=== PATIENT | male | born 1965 | race Caucasian/White ===

== ENCOUNTER → 2018-01-23 13:25 | Outpatient (CLI) | payer BC, SELFPAY ==
--- NOTE | 2018-01-23 13:28 | MR_ITS ---
MR lumbar spine wo con, MR 3-d myelogram/MRCP HISTORY: PT states low back pain X 6-8 Months. RT leg pain, numbness, and tingling. No prior surgery. ITS.REASON: ACUTE RIGHT-SIDED LOW BACK PAIN W/ RIGHT SIDE SCIATICA ORDERING PHYSICIAN: Pino Mcdonnell MD PATIENT AGE: 52 years Comparison: MRI 06/07/14 TECHNIQUE: Standard multiplanar multiecho sequences are performed without contrast. 3-D MIP and myelographic images are also rendered and reviewed FINDINGS: There is normal alignment. The spinal cord ends at the L2 level. L1-L2, L2-L3, L3-L4 have an unremarkable appearance. L4-5: There is mild facet hypertrophic change with mild left-sided foraminal narrowing. L5-S1: There is moderate facet hypertrophic change bilaterally greater on the right with moderate to severe right-sided foraminal narrowing with impingement upon the exiting L5 nerve root. There is [id number] left-sided foraminal narrowing. No disc herniation or canal stenosis. IMPRESSION: 1. Facet arthritic changes with moderate to severe right foraminal narrowing at L5-S1 with impingement upon the exiting L5 nerve root. There is also moderate foraminal narrowing of the left L5-S1 foramen and mild left-sided foraminal narrowing at L4-L5. The facet arthritic changes may be slightly worse than when compared to the previous exam. 2. No disc herniation or canal stenosis
== END ==
PROVIDERS: PCP Internal Medicine Adolescent Medicine; Visit Provider Internal Medicine Adolescent Medicine
DX: M54.41 Lumbago with sciatica, right side (principal)
CPT/HCPCS: 72148; 76376

== ENCOUNTER → 2018-04-08 11:35 | Outpatient (POV) | payer BC, SELFPAY ==
[2018-04-08 12:08] VITALS: BP 165/76; PULSE 64; RESP 18; O2SAT 99
--- NOTE | 2018-04-08 12:49 | HMH.PMCON ---
Assessment and Plan (1) Piriformis syndrome of right side Current visit: Yes Status: Chronic Category: Medical Code(s): G57.01 - Lesion of sciatic nerve, right lower limb (2) Sacroiliitis Current visit: Yes Status: Chronic Category: Medical Code(s): M46.1 - Sacroiliitis, not elsewhere classified - Assessment and plan all Dx Assessment and Plan for all problems:: We will schedule right SI joint injection and right piriformis injection. I believe that this might be diagnostically helpful in determining what is causing his pain. May also benefit him with increased functionality. This note was dictated using voice recognition software and may contain errors or omissions HPI - Data of Consult Consult date: 04/08/18 Requesting Physician: Trang Vega APRN Primary Care Provider: Pino Mcdonnell MD - Consult Narrative Reason for consult: Hip pain History of present illness: Mr. Felton is a 53 year old male resents today for consultation in regards to his right hip and leg pain. Patient states that standing for long periods of time increases his pain while resting decreases his pain. He has numbness and tingling in feet at times. He had a steroid injection intramuscularly which did help for some time. Patient is completed physical therapy with minimal relief along with occupational therapy. He is also been to chiropractic therapy. He rates his pain a 3 out of 10 and states that it is annoying. Patient has a fairly benign MRI does show some foraminal narrowing over along with some facet arthritis. Patient states most of his pain is in his hip area and underneath his buttock. CC: Trang Vega APRN [facility] History I have reviewed the patient's past medical history: Yes Medical History: Reports:: Hyperlipidemia, Hypertension - *Social History Alcohol Intake: never Occupational Status: other Housing: house - Psychiatric History Expresses thoughts of harming self/others: None Suicide Plan Description: No Plan *Family Hx:: Unable to obtain Review of Systems - Review of Systems ROS General: no recent weight change, no fever, no sleep disturbances Respiratory: no cough, no shortness of air, no recurring pulmonary infections Cardiovascular/Peripheral Vascular: No chest pain, No palpitations, no edema, no shortness of breath. Gastrointestinal: no incontinence, normal bowel movements reported Genitourinary: no incontinence Musculoskeletal: Right hip pain Psychiatric: normal mood/ affect Neurological: [denies weakness in extremities], [denies balance issues] Meds Allergies Allergy/AdvReac Type Severity Reaction Status Date / Time diclofenac [DICLOFENAC] Allergy Intermediate Unverified 04/16/17 15:15 azithromycin Allergy Unknown Unverified 04/16/17 15:15 Objective Vital signs: Pulse Resp BP Pulse Ox 64 18 165/76 H 99 04/08/18 12:08 04/08/18 12:08 04/08/18 12:08 04/08/18 12:08 Narrative: Physical Exam General: Alert and oriented x3, no acute distress, pleasant and cooperative, [on room air] Lungs: Resps E/U, Symmetrical chest expansion, Eyes: PERRL Musculoskeletal: Flexion and extension of lumbar spine somewhat guarded secondary to pain, deep tendon reflexes normal, strength in upper and lower extremities [5/5], slightly antalgic gait noted, positive Espinoza's test on the right side, extreme point tenderness over right piriformis muscle Neurological: speech clear, 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
--- NOTE | 2018-04-08 12:52 | P.CONS_ITS ---
Assessment and Plan (1) Piriformis syndrome of right side Current visit: Yes Status: Chronic Category: Medical Code(s): G57.01 - Lesion of sciatic nerve, right lower limb (2) Sacroiliitis Current visit: Yes Status: Chronic Category: Medical Code(s): M46.1 - Sacroiliitis, not elsewhere classified - Assessment and plan all Dx Assessment and Plan for all problems:: We will schedule right SI joint injection and right piriformis injection. I believe that this might be diagnostically helpful in determining what is causing his pain. May also benefit him with increased functionality. This note was dictated using voice recognition software and may contain errors or omissions HPI - Data of Consult Consult date: 04/08/18 Requesting Physician: Trang Vega APRN Primary Care Provider: Pino Mcdonnell MD - Consult Narrative Reason for consult: Hip pain History of present illness: Mr. Felton is a 53 year old male resents today for consultation in regards to his right hip and leg pain. Patient states that standing for long periods of time increases his pain while resting decreases his pain. He has numbness and tingling in feet at times. He had a steroid injection intramuscularly which did help for some time. Patient is completed physical therapy with minimal relief along with occupational therapy. He is also been to chiropractic therapy. He rates his pain a 3 out of 10 and states that it is annoying. Patient has a fairly benign MRI does show some foraminal narrowing over along with some facet arthritis. Patient states most of his pain is in his hip area and underneath his buttock. CC: Trang Vega APRN [facility] History I have reviewed the patient's past medical history: Yes Medical History: Reports:: Hyperlipidemia, Hypertension - *Social History Alcohol Intake: never Occupational Status: other Housing: house - Psychiatric History Expresses thoughts of harming self/others: None Suicide Plan Description: No Plan *Family Hx:: Unable to obtain Review of Systems - Review of Systems ROS General: no recent weight change, no fever, no sleep disturbances Respiratory: no cough, no shortness of air, no recurring pulmonary infections Cardiovascular/Peripheral Vascular: No chest pain, No palpitations, no edema, no shortness of breath. Gastrointestinal: no incontinence, normal bowel movements reported Genitourinary: no incontinence Musculoskeletal: Right hip pain Psychiatric: normal mood/ affect Neurological: [denies weakness in extremities], [denies balance issues] Meds Allergies Allergy/AdvReac Type Severity Reaction Status Date / Time diclofenac [DICLOFENAC] Allergy Intermediate Unverified 04/16/17 15:15 azithromycin Allergy Unknown Unverified 04/16/17 15:15 Objective Vital signs: Pulse Resp BP Pulse Ox 64 18 165/76 H 99 04/08/18 12:08 04/08/18 12:08 04/08/18 12:08 04/08/18 12:08 Narrative: Physical Exam General: Alert and oriented x3, no acute distress, pleasant and cooperative, [on room air] Lungs: Resps E/U, Symmetrical chest expansion, Eyes: PERRL Musculoskeletal: Flexion and extension of lumbar spine somewhat guarded secondary to pain, deep tendon reflexes normal, strength in upper and lower extremities [5/5], slightly antalgic gait noted, positive Espinoza's
== END ==
PROVIDERS: PCP Internal Medicine Adolescent Medicine; Visit Provider Clinical Nurse Specialist Family Health
DX: G57.01 Lesion of sciatic nerve, right lower limb (principal); M46.1 Sacroiliitis, not elsewhere classified
CPT/HCPCS: 99202

== ENCOUNTER → 2018-05-12 13:43 | Outpatient (POV) | payer BC, SELFPAY ==
[2018-05-12 13:54] VITALS: BP 146/84; PULSE 67; RESP 18; O2SAT 98; BMI 35.7
--- NOTE | 2018-05-12 14:11 | P.CONS_ITS ---
[facility] Pain Management SOAP Note Subjective:: Is a pleasant 53-year-old white male who presents today for follow-up after right SI joint injection right piriformis injection. Patient is doing much better. He states that he had no pain for 5 days and as it slowly began to come back his did some deep tissue massage which was very beneficial. Patient would like to explore this option for pain control. He rates his pain a 3 out of 10 today. ROS General: no recent weight change, no fever, no sleep disturbances Respiratory: no cough, no shortness of air, no recurring pulmonary infections Cardiovascular/Peripheral Vascular: No chest pain, No palpitations, no edema, no shortness of breath. Gastrointestinal: no incontinence, normal bowel movements reported Genitourinary: no incontinence Musculoskeletal: Right SI joint pain, right piriformis pain Psychiatric: normal mood/ affect Neurological: [denies weakness in extremities], [denies balance issues] Objective:: Physical Exam General: Alert and oriented x3, no acute distress, pleasant and cooperative, [on room air] Lungs: Resps E/U, Symmetrical chest expansion, Eyes: PERRL Musculoskeletal: Flexion and extension of lumbar spine somewhat guarded secondary to pain, deep tendon reflexes normal, strength in upper and lower extremities [5/5], slightly antalgic gait noted Neurological: speech clear, 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 Patient is going to look into massage therapy. Patient's been instructed to call the office if he has any issues prior to his next appointment. This note was dictated using voice recognition software and may contain errors or omissions
== END ==
PROVIDERS: PCP Internal Medicine Adolescent Medicine; Visit Provider Clinical Nurse Specialist Family Health
DX: M79.18 Myalgia, other site (principal); G57.01 Lesion of sciatic nerve, right lower limb; M46.1 Sacroiliitis, not elsewhere classified
CPT/HCPCS: 99213

== ENCOUNTER → 2018-08-04 13:20 | Outpatient (CLI) | payer BC, SELFPAY ==
--- NOTE | 2018-08-04 13:29 | XR_ITS ---
XR sacroiliac joint BI min 3V CLINICAL INDICATION: ITS.REASON: LOW BACK PAIN WITH RT HIP PAIN ORDERING PHYSICIAN: Pino Mcdonnell MD PATIENT AGE: 53 years Comparison: None FINDINGS: The SI joints have an unremarkable appearance. No evidence of effusion or erosive change. Small sclerotic focus is noted superior to the right acetabulum and may be due to bone island at 6 mm. Additional sclerotic focus involves the junction of the left inferior pubic ramus with the ischium. IMPRESSION: Unremarkable SI joints. Possible bone islands
--- NOTE | 2018-08-04 13:29 | XR_ITS ---
XR hip RT 2-3V w/pelvis HISTORY: ITS.REASON: LOW BACK PAIN WITH RT HIP PAIN ORDERING PHYSICIAN: Pino Mcdonnell MD PATIENT AGE: 53 years COMPARISON: None FINDINGS: Mild osteoarthritic changes are present involving the right hip. Trace lucency is present along the acetabular roof laterally at 1 cm and may represent a subchondral cyst. No fracture or dislocation. IMPRESSION: Mild osteoarthritis of the right hip with lucency of the acetabular roof which may be due to a subchondral cyst/geode
--- NOTE | 2018-08-04 13:29 | XR_ITS ---
XR hip LT 2-3V w/pelvis HISTORY: ITS.REASON: LOW BACK PAIN WITH HIP PAIN ORDERING PHYSICIAN: Pino Mcdonnell MD PATIENT AGE: 53 years COMPARISON: None FINDINGS: No fracture or dislocation is evident. There are minimal osteoarthritic changes with minimal osteophyte formation along the inferior aspect of the acetabulum. A sclerotic focus is present involving the junction of the inferior pubic ramus with the ischium and may be due to a bone island. IMPRESSION: Minimal osteoarthritic changes of the left hip
== END ==
PROVIDERS: PCP Internal Medicine Adolescent Medicine; Visit Provider Internal Medicine Adolescent Medicine
DX: M54.5 Low back pain (principal); M25.552 Pain in left hip; M25.551 Pain in right hip
CPT/HCPCS: 72202; 73502

== ENCOUNTER → 2020-05-26 07:17 | Outpatient (CLI) | payer BC, OTHER, SELFPAY ==
--- NOTE | 2020-05-26 | CA_ITS ---
APPROVED REPORT Exam: Exercise Treadmill Technologist: Grace Yancey, Ht: 5 ft 8 in Wt: 239 lbs BSA: 2.20 m2 Medical History Medications: Levothyroxine,,,,, Celecoxib,,,,, Trazodone,,,,, BisOPROLOL-HCTZ,,,,, Testosterone Cypionate,,,,, Stress Test Details Test: Godfrey HR Resting HR: 66 bpm Max Heart Rate (APMHR): 163 bpm Max HR Achieved: 131 bpm Target HR (85% APMHR): 138 bpm % of APMHR: 80 Recovery HR: 78 bpm BP Resting BP: 134/76 mmHg Max BP: 174/80 mmHg Recovery BP: 145.0/85.0 mmHg ECG Resting ECG: Sinus gildardo, Left posterior fasicular block, ST-T abns inferiorly Clinical Exercise duration: 06:31 min Highest Stage Achieved: Exercise capacity: 7.0 METs Stress ECG Conclusion Exercised 6:31 on Godfrey Protocol Max HR: 131 %of PM: 80% Max BP: 174/80 METs: 7.0 Test stopped due to : SOA, leg fatique Symptoms: Mild chest tightness Arrhythmias/Ectopy: Rare PVC ST-T Changes: No significant changes compared to baseline EKG. Conclusion: Non-diagnostic GXT due to baseline EKG abns. Blunted HR response on Bisoprolol<80% of PM achieved. Myoview images reported separtely. Test Summary REST . . . . . . . Standing REST . . . . . . . Sitting REST . . . . . . . Standing REST . . . . . . . Sitting REST 17:51 0.0 0.0 66 . 134/ 76 . . Stage 1 01:00 10.0 1.7 91 . . . . Stage 1 02:00 10.0 1.7 100 . . . . Stage 1 03:00 10.0 1.7 102 . 155/ 85 . . Stage 2 01:00 12.0 2.5 108 . . . . Stage 2 02:00 12.0 2.5 114 . . . . Stage 2 . . . . . . . Cardiolite injected Stage 2 03:00 12.0 2.5 119 . 164/ 80 . . Stage 3 00:31 14.0 3.4 130 . . . Stop exercise at 06:31 RECOVERY 01:00 0.0 0.0 96 . . . . RECOVERY 02:00 0.0 0.0 81 . 174/ 80 . . RECOVERY 03:00 0.0 0.0 79 . 174/ 80 . . RECOVERY 04:00 0.0 0.0 81 . 135/ 84 . . RECOVERY 05:00 0.0 0.0 74 . 156/ 84 . . RECOVERY 06:00 0.0 0.0 74 . 156/ 84 . . RECOVERY 06:56 0.0 0.0 76 . 145/ 85 . . Electronically signed by : Ari Metcalf, 05/26/2020 18:21:55
--- NOTE | 2020-05-26 07:29 | NM_ITS ---
APPROVED REPORT Exam: Nuclear Stress Test Indication: chest pain..short of breath..fatigue Patient Location: Outpatient Stress Tech: Idania Fernandez [place] Tech:NEW Rob RT(R)(N) Ht: 5 ft 8 in Wt: 240 lbs HR: 60 bpm BP: 134/76 mmHg BSA: 2.21 m2 BMI: 36.4 History: chest pain..short of breath..fatigue Procedure: Patient exercised on Godfrey protocol 6.31 minutes and sec, resting heart rate 60 bpm, resting blood pressure 134/76 mmHg, with exercise maximum heart rate achived was 131 bpm which is 80 % of the maximum predicted heart rate and blood pressure was 174/80 mmHg. Patient has adequate exercise capacity, achieved 7.0 METs of workload on treadmill, the blood pressure response to exercise was adequate. Electrocardiogram Resting electrocardiogram shows sinus rhythm nonspecific ST-T changes, with exercise there is less than 1.[address] segment depression noted from the baseline EKG. The EKG portion of the exercise Myoview is nondiagnostic. Cardiac Stress and Resting SPECT Images: Cardiac Stress and Resting SPECT images were obtained using technetium 99m Myoview 32.8 mCi stress and 10.25 mCi at rest. Gated SPECT for analysis of segmental wall motion and calculation of the ejection fraction also done. Prone images were also obtained. Cardiac stress and resting SPECT images show uniform myocardial activity without segmental perfusion abnormality, computer derived ejection fraction is 58% with no regional wall motion abnormality, right ventricle is mildly enlarged with normal contractility. Conclusion: 1. The EKG portion of the exercise Myoview is nondiagnostic as patient did not achieve the target heart rate, patient has adequate exercise capacity achieved 7 mets of workload on treadmill, the blood pressure response to exercise was adequate. There was no exercise-induced chest discomfort. 2. No scintigraphic evidence of reversible ischemia seen at this level of exercise, computer derived ejection fraction is 58% with no regional wall motion abnormality, right ventricle is mildly enlarged with normal contractility. Electronically signed by : Ari Metcalf, 05/26/2020 18:58:34
== END ==
PROVIDERS: PCP Internal Medicine Adolescent Medicine; Visit Provider Internal Medicine Adolescent Medicine
DX: R07.9 Chest pain, unspecified (principal); I10 Essential (primary) hypertension
CPT/HCPCS: 78452; 93017; A9502

== ENCOUNTER → 2020-07-21 15:01 | Outpatient (CLI) | payer BC, OTHER, SELFPAY ==
[2020-07-21 15:24] LABS: Basophils # 0.1 K/mm3 (0-0.2); Basophils % 0.8 % (0.1-2.0); Eosinophils # 0.3 K/mm3 (0.0-0.4); Eosinophils % 2.9 % (0.1-12.0); Hematocrit 47.9 % (42.0-52.0); Hemoglobin 15.2 g/dL (14.1-18.0); Lymphocytes # 2.3 K/mm3 (0.7-4.5); Mean Corpuscular HGB Conc 31.8 g/dL (31.8-35.4); Mean Corpuscular Volume 84.8 fl (80-94); Mean Platelet Volume 8.4 fl (7.4-10.4); Monocytes # 0.7 K/mm3 (0.1-1.0); Monocytes % 7.6 % (1.7-9.3); Neutrophils # 5.6 K/mm3 (1.8-7.8); Neutrophils % 62.8 % (37.0-80.0); Platelet Count 211 K/mm3 (142-424); Red Blood Count 5.65 M/mm3 (4.60-6.20); Red Cell Distribution Width 14.1 % (11.5-17.5); White Blood Count 8.9 K/mm3 (4.8-10.8)
[2020-07-21 15:58] LABS: Chloride 102 mmol/L (98-107); Potassium 4.3 mmoL/L (3.5-5.1); Sodium 140 mmol/L (136-145)
[2020-07-21 16:00] LABS: Blood Urea Nitrogen 26 mg/dl (9-20); Estimated Glomerular Filt Rate 57 ml/min (>60); GFR (African American) 69 ML/MIN (>60)
[2020-07-21 16:01] LABS: Alanine Aminotransferase 37 U/L (12-78); Albumin Level 4.3 g/dl (3.5-5.0); Albumin/Globulin Ratio 1.5 (1.1-1.8); Alkaline Phosphatase 73 U/L (38-126); Anion Gap 11.3 mEq/L (5-15); Aspartate Amino Transferase 36 U/L (17-59); Bilirubin,Total 0.5 mg/dl (0.2-1.3); Calcium 9.7 mg/dl (8.4-10.2); Carbon Dioxide 31 mmol/L (22.0-30.0); Globulin 2.8 g/dL (1.3-3.2); Glucose 99 mg/dl (74-100); Total Protein,Serum 7.1 g/dl (6.3-8.2)
== END ==
PROVIDERS: Visit Provider Internal Medicine Adolescent Medicine
DX: E29.1 Testicular hypofunction (principal)
CPT/HCPCS: 36415; 80053; 84402; 84403; 85025

== ENCOUNTER → 2020-09-12 16:49 | Outpatient (CLI) | payer BC, OTHER, SELFPAY ==
--- NOTE | 2020-09-12 | XR_ITS ---
PROCEDURE: XR SHOULDER LT MIN 2V CLINICAL INDICATION: Pain COMPARISON: No exams were available for comparison FINDINGS: No fracture or dislocation. No lytic or blastic change. There is normal mineralization. Hypertrophic changes are present along the undersurface of the acromion with resultant subacromial stenosis. Mild osteoarthritic changes are present at the acromioclavicular joint. Glenohumeral joint has an unremarkable appearance. Other findings:None. IMPRESSION: Subacromial stenosis with hypertrophy along the undersurface of the acromion with mild osteoarthritic changes of the AC joint Dictated by: Fausto Tovar MD 09/12/2020 18:22 Fausto Tovar MD in [place] 09/12/2020 18:22
== END ==
PROVIDERS: PCP Internal Medicine Adolescent Medicine; Visit Provider Internal Medicine Adolescent Medicine
DX: M75.102 Unspecified rotator cuff tear or rupture of left shoulder, not specified as traumatic (principal)
CPT/HCPCS: 73030

== ENCOUNTER → 2021-02-25 11:16 | Outpatient (CLI) | payer BC, OTHER, SELFPAY ==
--- NOTE | 2021-02-25 11:21 | XR_ITS ---
PROCEDURE INFORMATION: Exam: XR Right Knee Exam date and time: 02/25/2021 11:21 AM Age: 55 years old Clinical indication: Pain; Knee; Right TECHNIQUE: Imaging protocol: XR Right knee. Views: 3 views. COMPARISON: No relevant prior studies available. FINDINGS: Bones/joints: No acute fracture or dislocation. Enthesophyte superior patella. Soft tissues: Normal. IMPRESSION: No acute findings.
== END ==
PROVIDERS: PCP Internal Medicine Adolescent Medicine; Visit Provider Internal Medicine Adolescent Medicine
DX: M25.561 Pain in right knee (principal)
CPT/HCPCS: 73562

== ENCOUNTER → 2021-04-20 16:00 | Outpatient (CLI) | payer BC, SELFPAY ==
[2021-04-20 16:48] LABS: Basophils # 0.1 K/mm3 (0-0.2); Basophils % 1.1 % (0.1-2.0); Eosinophils # 0.2 K/mm3 (0.0-0.4); Eosinophils % 1.9 % (0.1-12.0); Hematocrit 49.6 % (42.0-52.0); Hemoglobin 15.9 g/dL (14.1-18.0); Lymphocytes % 21.4 % (10-50); Mean Corpuscular Volume 84.5 fl (80-94); Mean Platelet Volume 9.9 fl (7.4-10.4); Monocytes # 0.9 K/mm3 (0.1-1.0); Monocytes % 9.2 % (1.7-9.3); Neutrophils # 6.2 K/mm3 (1.8-7.8); Neutrophils % 66.4 % (37.0-80.0); Platelet Count 220 K/mm3 (142-424); Red Blood Count 5.87 M/mm3 (4.60-6.20); Red Cell Distribution Width 15.4 % (11.5-17.5); White Blood Count 9.4 K/mm3 (4.8-10.8)
[2021-04-20 18:20] LABS: Alanine Aminotransferase 33 U/L (12-78); Albumin Level 4.3 g/dl (3.5-5.0); Albumin/Globulin Ratio 1.6 (1.1-1.8); Alkaline Phosphatase 56 U/L (38-126); Anion Gap 10.5 mEq/L (5-15); Aspartate Amino Transferase 36 U/L (17-59); Bilirubin,Total 0.6 mg/dl (0.2-1.3); Blood Urea Nitrogen 18 mg/dl (9-20); Calcium 9.6 mg/dl (8.4-10.2); Carbon Dioxide 33 mmol/L (22.0-30.0); Chloride 98 mmol/L (98-107); Estimated Glomerular Filt Rate 77 ml/min (>60); GFR (African American) 93 ML/MIN (>60); Globulin 2.7 g/dL (1.3-3.2); Glucose 86 mg/dl (74-100); Magnesium 1.8 mg/dl (1.6-2.3); Potassium 4.5 mmoL/L (3.5-5.1); Sodium 137 mmol/L (136-145)
[2021-04-20 18:50] LABS: Thyroid Stimulating Hormone 2.49 uIU/mL (0.465-4.68)
[2021-04-20 19:09] LABS: Vitamin B12 465 pg/mL (239-931)
[2021-04-22 05:07] LABS: Testosterone,Total 654 ng/dL (264-916)
== END ==
PROVIDERS: Visit Provider Nurse Practitioner Family
DX: I10 Essential (primary) hypertension (principal); E03.9 Hypothyroidism, unspecified; E29.1 Testicular hypofunction; R53.81 Other malaise
CPT/HCPCS: 36415; 80053; 82607; 83735; 84403; 84443; 85025

== ENCOUNTER → 2022-03-29 11:28 | Outpatient (CLI) | payer OTHER, SELFPAY ==
--- NOTE | 2022-03-29 11:35 | XR_ITS ---
FINAL REPORT CLINICAL HISTORY: NECK PAIN x 6 mos, no injury, no surgery FINDINGS: CERVICAL SPINE Five views were obtained. There is no acute fracture. There is no malalignment. There is loss of cervical lordosis. The disc spaces are maintained. There is moderate anterior osteophyte formation at C5-C6. The neural foramen are adequately patent. IMPRESSION: No acute process. Reviewed, Interpreted and Dictated by Shahid Mcnally MD Transcribed by Andrew Brandon Authenticated and [facility]
== END ==
PROVIDERS: PCP Nurse Practitioner Family; Visit Provider Nurse Practitioner Family
DX: M54.2 Cervicalgia (principal)
CPT/HCPCS: 72050

== ENCOUNTER 2022-04-11 08:43 | Outpatient (RCR) | payer BC, OTHER, SELFPAY ==
--- NOTE | 2022-04-11 09:56 | HMH.PTOPEV ---
PT Outpatient Evaluation Rehab PT Outpatient Evaluation Start: 04/11/22 09:23 Freq: Status: Active Protocol: Document 04/11/22 09:42 PATRIA (Rec: 04/11/22 09:54 PATRIA [id number]) E-signed By Arturo Roach, PT Outpatient Therapy Subjective History Subjective History Patient is a 57 year old male presenting to outpatient PT with reports of chronic cervical spine pain with associated cervicogenic headaches. Symptoms of insidious onset started approximately 10 years ago and have progressively gotten worse over the past 6 months. Most recent imaging indicate no acute process. Comorbidities include hx of LS fusion, HTN and colon resection. Chief Complaint Pain,Stiff Symptom Type Throb Symptoms Relieved By Rest/Positioning,Heat,OTC Meds Symptoms Aggravated By Physical Activity,Lifting Prior Functional Limitations Reaching,Lifting,Housework Current Functional Limitations Reaching,Lifting,Housework Symptom Description Intermittent Level of pain today (0-10) 5 Pain scale - at its best (0-10) 0 Pain scale - at its worst (0-10) 7 Cervical Eval Palpation Cervical Muscles R Cervical Paraspinal,L Cervical Paraspinal,R Suboccipital,L Suboccipital Posture Head/C-Spine Posture Sitting Position C-Spine Flattened Head/C-Spine Posture Standing Position C-Spine Flattened Flexibility Deficits Upper Trapezius Muscle Length (R) Moderate Tightness,(L) Moderate Tightness Pectoralis Minor Muscle Length (R) Moderate Tightness,(L) Moderate Tightness Passive Joint Mobility Cervical PIVM Dec: R C2/3 L C2/3 R C3/4 L C3/4 R C4/5 L C4/5 R C5/6 L C5/6 R C6/7 L C6/7 R C7/T1 L C7/T1 WNL: R OA L OA R AA L AA AROM Cervical Spine E
== END 2022-04-11 08:45 | disposition home or self-care (01) ==
LOC: PT 08:43
PROVIDERS: PCP Nurse Practitioner Family; Visit Provider Nurse Practitioner Family
DX: M54.2 Cervicalgia (principal)
CPT/HCPCS: 97163

== ENCOUNTER → 2022-06-06 09:33 | Outpatient (CLI) | payer OTHER, SELFPAY ==
--- NOTE | 2022-06-06 09:37 | CT_ITS ---
FINAL REPORT TECHNIQUE: Axial images through the abdomen and pelvis were performed without contrast. This study was performed with techniques to keep radiation doses as low as reasonably achievable, (ALARA). Individualized dose reduction techniques using automated exposure control or adjustment of mA and/or kV according to the patient's size were employed. CLINICAL HISTORY: REDUCIBLE BULGE OF ABD WALL, previous lower abd pain FINDINGS: ABDOMEN: There is extensive calcified subcarinal and hilar adenopathy. The heart size is normal. The liver parenchyma is homogeneous. There are gallstones in the gallbladder. There are calcified granulomas in the spleen. No adrenal mass is identified. The aorta is normal in caliber. There is no significant free fluid. A benign-appearing cyst is seen in the right kidney measuring 1.9 cm. There is no nephrolithiasis. No definite hernia is identified. There is no hydronephrosis. Streak artifact is seen from posterior fusion hardware bridging L5-S1. PELVIS: The appendix is not identified. The urinary bladder is unremarkable. There is no significant free fluid or adenopathy. IMPRESSION: No definite hernia identified. Cholelithiasis. Reviewed, Interpreted and Dictated by Shahid Mcnally MD Transcribed by Julieta Barrios Authenticated and [facility]
== END ==
PROVIDERS: PCP Nurse Practitioner Family; Visit Provider Nurse Practitioner Family
DX: R19.00 Intra-abdominal and pelvic swelling, mass and lump, unspecified site (principal)
CPT/HCPCS: 74176

== ENCOUNTER → 2022-09-19 09:30 | Outpatient (CLI) | payer OTHER, SELFPAY ==
--- NOTE | 2022-09-19 09:39 | CT_ITS ---
FINAL REPORT TECHNIQUE: Axial CT images of the abdomen and pelvis were obtained before and after the administration of IV contrast. Oral contrast was administered.This study was performed with techniques to keep radiation doses as low as reasonably achievable (ALARA). Individualized dose reduction techniques using automated exposure control or adjustment of mA and/or kV according to the patient''s size were employed. CLINICAL HISTORY: LLQ ABD PAIN X 1 MOS ORAL CONTRAST FINISHED AT 7:45 AM COMPARISON: 06/06/2022 FINDINGS: Abdomen: There is mild bibasilar atelectasis. The heart is normal in size. The liver is fatty infiltrated. Gallstones are present in the gallbladder. The spleen is unremarkable. No adrenal masses present. The pancreas has an unremarkable appearance. There is a cyst in the lower pole of the right kidney measuring 20 mm. The aorta is normal in caliber. There is no free fluid or adenopathy. No mass or abnormal fluid collection is seen. Precontrast images demonstrate no evidence of nephrolithiasis. Pelvis: The appendix is normal. There are scattered diverticula throughout the colon. There is mild wall thickening of the rectosigmoid colon. Mild colitis is not excluded. The urinary bladder is unremarkable. There is no evidence of mass or adenopathy. There are bilateral inguinal hernias containing fat. Postoperative changes are noted in the lumbar spine. IMPRESSION: Fatty liver. Scattered diverticula throughout the colon. Mild wall thickening rectosigmoid colon. 20 mm right renal cyst. Reviewed, Interpreted and Dictated by Alireza Rai III, MD Transcribed by Katie Mccracken Authenticated and . [facility]
[2022-09-19 10:01] LABS: Blood Urea Nitrogen 21 mg/dl (9-20); Estimated Glomerular Filt Rate 76 ml/min (>60); GFR (African American) 93 ML/MIN (>60)
== END ==
PROVIDERS: PCP Nurse Practitioner Family; Visit Provider Internal Medicine Adolescent Medicine
DX: R10.32 Left lower quadrant pain (principal)
CPT/HCPCS: 36415; 74178; 82565; 84520; Q9967

== ENCOUNTER → 2022-09-26 14:54 | Outpatient (CLI) | payer OTHER, SELFPAY ==
[2022-09-26 15:01] LABS: Microscopic, Urine URINE MICROSCOPIC (MICROSCOPIC)
[2022-09-26 15:32] LABS: Basophils # 0.1 K/mm3 (0-0.2); Basophils % 0.7 % (0.1-2.0); Eosinophils # 0.2 K/mm3 (0.0-0.4); Eosinophils % 2.9 % (0.1-12.0); Hematocrit 46.8 % (42.0-52.0); Hemoglobin 14.6 g/dL (14.1-18.0); Lymphocytes # 1.8 K/mm3 (0.7-4.5); Lymphocytes % 23.3 % (10-50); Mean Corpuscular HGB Conc 31.2 g/dL (31.8-35.4); Mean Corpuscular Hemoglobin 24.8 pg (27.0-31.2); Mean Corpuscular Volume 79.6 fl (80-94); Monocytes # 0.6 K/mm3 (0.1-1.0); Monocytes % 7.9 % (1.7-9.3); Neutrophils # 5.1 K/mm3 (1.8-7.8); Neutrophils % 65.1 % (37.0-80.0); Platelet Count 211 K/mm3 (142-424); Red Blood Count 5.88 M/mm3 (4.60-6.20); Red Cell Distribution Width 16.1 % (11.5-17.5); White Blood Count 7.9 K/mm3 (4.8-10.8)
[2022-09-26 15:52] LABS: Appearance,Urine CLEAR (Clear); Bilirubin,Urine Negative (Negative); Blood, Urine Negative (Negative); Color,Urine YELLOW (Yellow); Glucose,Urine (UA) Negative (Negative); Ketones,Urine Negative (Negative); Leukocyte Esterase,Urine Negative (Negative); Nitrate,Urine Negative (Negative); Protein,Urine TRACE (Negative); Urobilinogen,Urine 0.2 EU/dl (0.2)
[2022-09-26 16:17] LABS: Alanine Aminotransferase 43 U/L (12-78); Albumin Level 4.1 g/dl (3.5-5.0); Albumin/Globulin Ratio 1.6 (1.1-1.8); Alkaline Phosphatase 61 U/L (38-126); Anion Gap 13.1 mEq/L (5-15); Aspartate Amino Transferase 37 U/L (17-59); Bilirubin,Total 0.7 mg/dl (0.2-1.3); Blood Urea Nitrogen 18 mg/dl (9-20); Calcium 9.4 mg/dl (8.4-10.2); Carbon Dioxide 31 mmol/L (22.0-30.0); Chloride 99 mmol/L (98-107); Estimated Glomerular Filt Rate 76 ml/min (>60); GFR (African American) 93 ML/MIN (>60); Globulin 2.6 g/dL (1.3-3.2); Glucose 140 mg/dl (74-100); Potassium 4.1 mmoL/L (3.5-5.1); Sodium 139 mmol/L (136-145); Total Protein,Serum 6.7 g/dl (6.3-8.2)
[2022-09-26 16:25] LABS: Amorphous Sediment,Urine 1+ /lpf; Bacteria,Urine Trace /lpf; RBC,Urine Occasional #/hpf (0-3); Squamous Epithelial Cell,Urine Occasional #/hpf (0-5); WBC,Urine Occasional #/hpf (0-3)
== END ==
PROVIDERS: PCP Nurse Practitioner Family; Visit Provider Surgery
DX: R10.30 Lower abdominal pain, unspecified (principal)
CPT/HCPCS: 36415; 80053; 81001; 85025

== ENCOUNTER → 2022-10-16 12:03 | Outpatient (CLI) | payer OTHER, SELFPAY ==
[2022-10-16 12:25] LABS: Basophils % 0.5 % (0.1-2.0); Eosinophils # 0.2 K/mm3 (0.0-0.4); Eosinophils % 2.9 % (0.1-12.0); Hematocrit 47.1 % (42.0-52.0); Hemoglobin 14.9 g/dL (14.1-18.0); Lymphocytes # 1.8 K/mm3 (0.7-4.5); Lymphocytes % 22.7 % (10-50); Mean Corpuscular HGB Conc 31.6 g/dL (31.8-35.4); Mean Corpuscular Hemoglobin 24.8 pg (27.0-31.2); Mean Corpuscular Volume 78.5 fl (80-94); Mean Platelet Volume 9.5 fl (7.4-10.4); Monocytes # 0.6 K/mm3 (0.1-1.0); Monocytes % 7.3 % (1.7-9.3); Neutrophils # 5.2 K/mm3 (1.8-7.8); Neutrophils % 66.6 % (37.0-80.0); Platelet Count 172 K/mm3 (142-424); White Blood Count 7.9 K/mm3 (4.8-10.8)
== END ==
PROVIDERS: PCP Internal Medicine Adolescent Medicine; Visit Provider Surgery
DX: Z01.812 Encounter for preprocedural laboratory examination (principal); Z87.19 Personal history of other diseases of the digestive system
CPT/HCPCS: 36415; 85025

== ENCOUNTER 2022-12-26 11:00 | Outpatient (RCR) | payer OTHER, SELFPAY ==
--- NOTE | 2022-09-19 11:50 | HMH.OTOPEV ---
OT Inpatient Evaluation Rehab OT Outpatient Eval Start: 09/19/22 11:33 Freq: Status: Active Protocol: Document 09/19/22 11:34 REJI (Rec: 09/19/22 11:[address] [id number][facility] E-signed By Alfonso Crowley, OT Outpatient Therapy Subjective History Subjective History Pt is a 57 year old male who reports to therapy for initial evaluation to left shoulder. Pt's pain begain ~2-3 months ago and he does not recall a specific injury to begin his pain. 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 Pt does demonstrate with decreased AROM and a slight decline in strength. Pt will continue to be seen twice a week in order to address left shoulder deficits. Chief Complaint Pain,Weakness Symptom Type Ache,Throb,Sharp,Dull,Stabbing Symptoms Relieved By Rest/Positioning,Heat,OTC Meds Symptoms Aggravated By Physical Activity,Lifting Prior Functional Limitations None Current Functional Limitations Reaching,Lifting,Housework, Sleeping,Recreation Activity Symptom Description Intermittent,Activity Dependent Level of pain today (0-10) 0 Pain scale - at its best (0-10) 0 Pain scale - at its worst (0-10) 8 Shoulder/Elbow Eval Shoulder Objective Measurements Shoulder ROM Left Shoulder Abduction Active Range of 118 degrees Motion (degrees) Shoulder Flexion Active Range of Motion 115 degrees (degrees) Query Text: Shoulder External Rotation Active Range 68 degrees of Motion (degrees) Shoulder Internal Rotation Active Range 50 degrees of Motion (degrees) Shoulder MMT Shoulder Abduction Strength Grade 4- Good- Shoulder Flexion Strength Grade 4- Good- Shoulder External Rotation Strength 4- Good- Grade Shoulder Internal Rotation Strength 4- Good- Grade Shoulder Strength Patient Testing Sitting Position Shoulder Special Tests impingement sign present shoulder exam left standard Shoulder Empty Can (Supraspinatus) Test Negative Left Shoulder Beck[place]-Tye Impingement Positive Left Test Shoulder Neer Impingement Test Positive Left Shoulder [place] Test Negative Left Elbow Objective Measurements OT Outpatient Assessment Impairments Problems/Impairments Palpation Tenderness,Im
--- NOTE | 2022-10-16 11:51 | HMH.RHREAS ---
Rehab Reassessment Rehab OP Re-assessment Start: 10/16/22 11:07 Freq: Status: Active Protocol: Document 10/16/22 11:08 REJI (Rec: 10/16/22 11:51 REJI [id number]) E-signed By Alfonso Crowley OT Rehab Re-assessment Subjective Subjective It was sore after the other day. Objective Objective Notes Pt continues to be seen for L shoulder deficits. At this time, pt engages in AROM and AAROM exercises. Pt receives PROM manual stretching to left shoulder in flexion, abduciton, ER, and IR. Modalities are provided in order to decrease pain/ inflammation. Assessment Progress Assessment Slower Than Expected Assessment Notes Pt has only attended two sessions since initial evalaution. Pt's AROM has improved, except for interanal rotation. Pt is still reporting an 8/10 pain at worst. Current AROM L shoulder Flex: 138 degrees Abd: 140 degrees ER: 70 degrees IR: [address] goals [address], 2, 3, and 5 Goals Not Met see below Revised Goals ST LT-5 Plan Plan Continues with OT plan of care at this time. Frequency of Therapy 2x's a week Duration of therapy 4 more weeks Time and Billing Re-Eval Time 12 Re-Eval Billing Units 1 PHYSICIAN CERTIFICATION: I certify the specified therapy services for Wayne Felton are required, authorized, and reviewed every 30 days.
--- NOTE | 2022-11-13 10:56 | HMH.RHREAS ---
Rehab Reassessment Rehab OP Re-assessment Start: 10/16/22 11:07 Freq: Status: Active Protocol: Document 11/13/22 10:50 REJI (Rec: 11/13/22 10:56 RMSAMINA [id number]) E-signed By Alfonso Crowley OT Rehab Re-assessment Subjective Subjective I think my mobility is much better. Objective Objective Notes Pt continues to be seen for L shoulder deficits. At this time, pt engages in AROM, AAROM, and strengthening exercises. Pt receives PROM manual stretching to left shoulder in flexion, abduciton , ER, and IR. Modalities are provided in order to decrease pain/inflammation. Assessment Progress Assessment Progressing as Expected Assessment Notes Pt has been very consistent about attending therapy sessions after last re- assessment. Pt's AROM has continued to improve in the past 4 weeks. Pt's pain has improved also. Pt's worst pain now is a 5/10. Current AROM L shoulder Flex: 150 degrees Abd: 145 degrees ER: 75 degrees IR: 70 degrees Patient goals met [address]-5 LT, 3, and 5 Goals Not Met see below Revised Goals LT and 4 New goals AROM L shoulder Flex: 160 degrees Abd: 155 degrees ER: 80 degrees IR: 70 degrees Plan Plan Continues with OT plan of care at this time. Frequency of Therapy 2x's a week Duration of therapy 4 more weeks Time and Billing Re-Eval Time 11 Re-Eval Billing Units 1 PHYSICIAN CERTIFICATION: I certify the specified therapy services for Wayne Felton are required, authorized, and reviewed every 30 days.
== END 2022-12-26 11:05 | disposition home or self-care (01) ==
LOC: OT 11:00
PROVIDERS: PCP Nurse Practitioner Family; Visit Provider Internal Medicine Adolescent Medicine
DX: M75.52 Bursitis of left shoulder (principal)
CPT/HCPCS: 97010; 97014; 97110; 97140; 97164; 97166; G0283

== ENCOUNTER 2023-06-06 16:49 | Outpatient (CLI) | payer BC, SELFPAY ==
--- NOTE | 2023-06-06 16:52 | MR_ITS ---
PROCEDURE INFORMATION: Exam: MR Head Without Contrast Exam date and time: 06/06/2023 5:06 PM Age: 58 years old Clinical indication: Pain; Headache; Additional info: Headaches TECHNIQUE: Imaging protocol: Magnetic resonance imaging of the head without contrast. COMPARISON: CR XR CERVICAL SPINE 5V 03/29/2022 11:42 AM FINDINGS: Brain: No acute infarct. No hemorrhage. Involutional changes of the brain, commensurate with age. No mass effect. Cerebral ventricles: Normal. No ventriculomegaly. Bones/joints: Unremarkable. Paranasal sinuses: Scattered paranasal sinus mucosal thickening, without air-fluid level present. Mastoid air cells: Normal as visualized. No mastoid effusion. Orbital cavities: Unremarkable. Soft tissues: Unremarkable. IMPRESSION: No acute intracranial abnormality.
== END 2023-06-06 23:59 ==
LOC: RAD 16:50
PROVIDERS: PCP Internal Medicine Adolescent Medicine; Visit Provider Internal Medicine Adolescent Medicine
DX: H93.11 Tinnitus, right ear (principal); R51.9 Headache, unspecified
CPT/HCPCS: 70551

== ENCOUNTER 2023-07-31 13:58 | Outpatient (POV) | payer BC, SELFPAY | END 2023-07-31 23:59 | disposition home or self-care (01) | LOC: SC 13:58 | PROVIDERS: Visit Provider Specialist/Technologist | DX: Z00.00 Encounter for general adult medical examination without abnormal findings (principal) ==

== ENCOUNTER → 2023-08-08 08:40 | Outpatient (CLI) | payer BC, SELFPAY | PROVIDERS: Visit Provider Nurse Practitioner | DX: G47.33 Obstructive sleep apnea (adult) (pediatric) (principal); G47.36 Sleep related hypoventilation in conditions classified elsewhere | CPT/HCPCS: G0399 ==

== ENCOUNTER 2023-12-26 09:00 | Outpatient (RCR) | payer BC, SELFPAY ==
--- NOTE | 2023-11-15 12:06 | HMH.PTOPEV ---
PT Outpatient Evaluation Rehab PT Outpatient Evaluation Start: 11/15/23 10:55 Freq: Status: Active Protocol: Document 11/15/23 11:30 PHOTOMER (Rec: 11/15/23 12:06 PHORNE [id number]) E-signed By Yaya Neely, PT Outpatient Therapy Subjective History Subjective History Patient Wayne Felton is a 58 year old male presenting to PT with the chief complaint of neck pain. He has experienced reoccurring neck pain on and off for multiple years. Patient has had x-ray imaging previously on ( 03/29/22) with the following presentations no acute fracture. There is no malalignment. Loss of cervical lordosis and disc spaces are maintained. X-ray showed that there is moderate anterior osteophyte formation at C5-C6. Patient recently found out he was diagnosed with DM and thought that it was contributing to his increased pain. He has no hx of injury or surgeries in the cervical region. He did mentioned having frequent headaches that typically occur in the back of his head and at night. New diagnosis of cancer in past 12 No months? Chief Complaint Pain,Stiff Symptom Type Dull Symptoms Relieved By Heat,OTC Meds Symptoms Aggravated By Physical Activity Prior Functional Limitations None Current Functional Limitations Desk Work/Reading,Driving Symptom Description Constant but Variable Level of pain today (0-10) 3 Pain scale - at its worst (0-10) 7 Cervical Eval Palpation Cervical Muscles R Suboccipital,L Suboccipital, R Upper Trapezius,L Upper Trapezius Cervical/Thoracic Palpation Findings Tenderness,Trigger Point, Muscle Guarding Posture Head/C-Spine Posture Sitting Position Flexed Head/C-Spine Posture Standing Position Flexed Flexibility Deficits Upper Trapezius Muscle Length (R) Moderate Tightness,(L) Moderate Tightness Levaetor Scapulae Muscle Length (R) Moderate Tightness,(L) Moderate Tightness Pectoralis Minor Muscle Length (R) Moderate Tightness,(L) Moderate Tightness AROM Cervical Spine Extension Active Range of 25 Motion (degrees) Cervical Spine Flexion Active Range of 74 Motion (degrees) Cervical Spine Right Lateral Flexion 36 Active Range of Motion (degrees) Cervical Spine Left Lateral Flexion 40 Active Range of Motion (degrees) Cervical Spine Right Rotation Active 47 Range of Motion (degrees) Cervical Spine Left Rotation Active 45 Range of Motion (degrees) Special Test C-Spine Foraminal Compression (Spurling) Negative Left,Negative Right Test C-Spine Foraminal Distraction Test Negative Neck Disability Index Neck Disability Index Section 1: Pain Intensity The pain is very mild at moment Section 2: Personal Care (washing, I can look after myself dressing, etc.) normally without causing extra pain Section 3: Lifting I can lift heavy weights without extra pain Section 4: Reading I can read as much as I want with moderate pain in my neck Section 5: Headaches I have moderate headaches, which come frequently Section 6: Concentration I can concentrate fully when I want to with slight difficulty Section 7: Work I can do as much work as I want to Section 8: Driving I can drive my car as long as I want with slight pain in my neck Section 9: Sleeping My sleep is midly disturbed (1 -2 hrs sleepless) Section 10: Recreation I am able to engage in all my recreation activities with no neck pain NDI Score 10 Miscellaneous Dx PT Eval Objective Objective Cervical MMT grossly 4+/5 , patient did mention having more increased pain during lateral flexion positions. Outpatient Therapy Assessment Impairments Problems/Impairmments Palpation Tenderness,Impaired Range of Motion,Impaired Strength,Subjective C/O Pain Prognosis Rehab Potential Good Comment Patient is a good candidate from skilled PT to address limitations in cervical strength and ROM, he will significantly benefit from PT to improve his QOL. Short Term Goals Number of Weeks 4 Decreased Palpation Tenderness Yes: PPT: from 3/5 to 1/5 Increase Range of Motion Yes: Cervical AROM by 5 deg all directions Improve Neck Disability Index Score Yes: Score: <5 Decrease Subjective C/O Pain Yes: Decrease pain with activity from 7/10 to 5/10 Patient to be Ind w/ HEP Yes Jail Goals Number of Weeks 8 Increase Range of Motion Yes: Improve cervical ROM in all directions by 5 degrees Increase Strength Yes: Cervical MMT 4/5 to 5/5 Improve Neck Disability Index Score Yes: Score below 2 Patient to be Ind w/ Advanced HEP Yes Outpatient Therapy Plan of Care Treatment Plan May Include Therapeutic Exercise Including Home Yes Exercise Program Manual Therapy Techniques Yes Therapeutic Activities to Return to Yes Previous Functional/Work Level ADL/Self Care Education Yes Mechanical Traction Yes Dry Needling Yes Thermal Modalities Yes Electrical Stimulation Yes Ultrasound/Phonophoresis Yes Eval/Re-Eval Yes Frequency Times per week 2 Duration Number of Weeks 8 Addendums This patient is a candidate for social No or vocational rehab? Patient/Guardian verbally acknowledges Yes understanding of treatment program and consents to further treatment? Patient/Guardian verbally acknowledges Yes understanding of diagnosis, prognosis and goals for treatment? Eval Complexity PT Charges 70270 - High Complexity Shoulder/Elbow Eval Shoulder Objective Measurements Elbow Objective Measurements PHYSICIAN CERTIFICATION: I certify the specified therapy services for Wayne Felton are required, authorized, and reviewed every 30 days.
--- NOTE | 2023-12-11 16:45 | HMH.RHREAS ---
Rehab Reassessment Rehab OP Re-assessment Start: 11/15/23 10:55 Freq: Status: Active Protocol: Document 12/11/23 16:24 CAROL (Rec: 12/11/23 16:45 PHORNE [id number]) E-signed By Yaya Neely PT Neck Disability Index Neck Disability Index Section 1: Pain Intensity The pain is moderate at the moment Section 2: Personal Care (washing, I can look after myself dressing, etc.) normally without causing extra pain Section 3: Lifting I can lift heavy weights but it gives extra pain Section 4: Reading I can read as much as I want with moderate pain in my neck Section 5: Headaches I have slight headaches, which come infrequently Section 6: Concentration I can concentrate fully when I want to with slight difficulty Section 7: Work I can only do my usual work, but no more Section 8: Driving I can drive my car as long as I want with slight pain in my neck Section 9: Sleeping My sleep is midly disturbed (1 -2 hrs sleepless) Section 10: Recreation I am able to engage in all my recreation activities with some pain in NDI Score 12 Rehab Re-assessment Subjective Subjective Patient's chief complaint is R sided neck pain that travels to his R shoulder, patient stated that it feels sore and harder look to his right side. Patient stated that he currently is having 6/10 neck pain during this visit but feels like PT has been helping more recently. Objective Objective Notes Patient still demonstrated limited R cervical AROM compared to the L, in total patient has experienced much improvement resulting in no pain occurring on the L side of neck. His pain is now solely only affecting the right shoulder and right portion of the neck. Patient was not having as much PPT tenderness over the spinous and transverse process of the cervical spine Patient has improved in active cervical range of motion for flexion and extension with no pain experienced, he has improved R cervical rotation to meet 40 degrees comparative to his L. Patient has improve NDI score from 10/50 to 12/50. Assessment Progress Assessment Slower Than Expected Assessment Notes Pt has shown slight improvement in overall cervical ROM and pain. He continues to need skilled therapy services to increased functional cervical ROM and reduce pain with ADLS to return to PLOF. Patient goals met ST LT/4 Plan Plan Continue with therapeutic exercise and stretching to help facilitate an increase in right cervical AROM. Frequency of Therapy 1-2 x/wk Duration of therapy 4-8 wks Time and Billing Re-Eval Time 10 Re-Eval Billing Units 1 PHYSICIAN CERTIFICATION: I certify the specified therapy services for Wayne Felton are required, authorized, and reviewed every 30 days.
== END 2023-12-26 09:05 | disposition home or self-care (01) ==
LOC: PT 09:00
PROVIDERS: Visit Provider Internal Medicine Adolescent Medicine
DX: M54.2 Cervicalgia (principal)
CPT/HCPCS: 97010; 97014; 97110; 97163; 97164; G0283